=== PATIENT | female | born 2000 | race Caucasian/White ===

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

== ENCOUNTER 2022-01-11 22:00 | Emergency (ER) | payer OTHER ==
[2022-01-11 23:42] LABS: HEMOGLOBIN 11.5 gm/dl (12.3-15.3); RED BLOOD COUNT 3.96 M/UL (4.00-5.10); WHITE BLOOD COUNT 9.9 K/UL (4.5-11.0)
[2022-01-11 23:53] LABS: BUN/CREATININE RATIO 10 (0-10)
== END 2022-01-12 02:05 | disposition home or self-care (01) ==
LOC: ER1 22:00
PROVIDERS: Family Medicine
DX: O21.9 Vomiting of pregnancy, unspecified (principal); Z3A.11 11 weeks gestation of pregnancy; Z88.5 Allergy status to narcotic agent
CPT/HCPCS: 80053; 81001; 84703; 85025; 87086; 93005; 99284

== ENCOUNTER 2022-07-06 18:45 | Outpatient (CLI) | payer OTHER | END 2022-07-06 21:22 | disposition home or self-care (01) | LOC: GENOP 18:45 | DX: O99.891 Other specified diseases and conditions complicating pregnancy (principal); M54.9 Dorsalgia, unspecified | CPT/HCPCS: 81001; 87086; G0463 ==